=== PATIENT | male | born 1985 | race African-American/Black ===

== ENCOUNTER 2020-05-25 22:03 | Observation (INO) ==
[2020-05-25] MEDS ORDERED: ASPIRIN 325 MG TABLET PO STA (22:39)
[2020-05-25 22:56] LABS: Basophils # 0.1 10*3/uL (0.0-0.2); Basophils % 0.7 % (0.0-0.8); Eosinophils # 0.1 10*3/uL (0.0-0.87); Eosinophils % 1.1 % (0.00-10.9); Hematocrit 47.3 VOL% (42.0-52.0); Hemoglobin 15.3 GM/DL (14.0-18.0); Immature Granulocytes Absolute 0.12 #; Lymphocytes # 5.2 10*3/uL (1.4-4.0); Mean Corpuscular HGB Conc 32.3 GM/DL (32-36); Mean Corpuscular Volume 87.3 FL (87-102); Mean Platelet Volume 10.4 FL (9.6-12.0); Monocytes % 8.8 % (1.7-12.7); Neutrophils % 43.4 % (38.7-73.9); Platelet Count 255 T/CUMM (130-400); Red Blood Count 5.42 MC/CUMM (3.8-5.5); Red Cell Distribution Width 14.1 % (9.3-17.3); White Blood Count 11.6 T/CUMM (4-12)
[2020-05-25 23:07] LABS: INR 1.1; PT Patient Result 11.3 SECS (9.8-11.9); Partial Thromboplastin Time 29.7 SECS (23.9-33.8)
[2020-05-25 23:15] LABS: Alanine Aminotransferase 69 U/L (16-61); Albumin 3.8 G/DL (3.4-5.0); Alkaline Phosphatase 77 U/L (45-117); Aspartate Amino Transferase 24 U/L (0-37); Blood Urea Nitrogen 12 MG/DL (7-18); Estimated Glom Filtration Rate 126 ML/MIN; Glucose 141 MG/DL (74-106); Osmolality,Calculated 276.7 MOS/KG (273-304); Total Protein 8.4 G/DL (6.4-8.3)
[2020-05-25] MEDS ORDERED: hydrALAZINE 20 MG/1 ML VIAL IV PRN (23:36)
[2020-05-25] MEDS ORDERED: MORPHINE 4 MG/1 ML VIAL IV PRN (23:36)
[2020-05-25] MEDS ORDERED: diphenhydrAMINE CAP 25 MG CAPSULE PO PRN (23:36)
[2020-05-25] MEDS ORDERED: guaiFENesin/DM ER 600-30 MG TABLET PO PRN (23:36)
[2020-05-25] MEDS ORDERED: ZALEPLON 5 MG CAPSULE PO PRN (23:36)
[2020-05-25] MEDS ORDERED: DEXTROSE 50% 25 GM/50 ML VIAL IV PRN (23:36)
[2020-05-25] MEDS ORDERED: ACETAMINOPHEN 325 MG TABLET PO PRN (23:36)
[2020-05-25] MEDS ORDERED: NICOTINE 21 MG/24 HR PATCH TRANSDERM PRN (23:36)
[2020-05-25] MEDS ORDERED: PROMETHAZINE 25 MG/1 ML VIAL IM PRN (23:36)
[2020-05-25] MEDS ORDERED: GLUCAGON 1 MG VIAL IM PRN (23:36)
[2020-05-26] MEDS: ONDANSETRON 4 MG/2 ML VIAL IV PRN ×2 (00:15→09:19)
[2020-05-26] MEDS: SODIUM CHLORIDE 0.9% 1,000 ML IV SCH ×2 (01:08→14:18)
[2020-05-26 01:33] LABS: Apearance,Urine CLEAR (Clear); Bilirubin,Urine Negative (Negative); Blood, Urine Negative (Negative); Glucose,Urine (UA) 150 mg/dL (Negative); Ketones,Urine Negative (Negative); Mucus,Urine Occasional /LPF (Occasional); Nitrite,Urine Negative (Negative); Protein,Urine Negative; RBC,Urine 1 /HPF (0-4); Urine Color Yellow (Yellow); Urine Specific Gravity 1.024 (1.001-1.035); Urine Urobilinogen < 2.0 EU/DL (0.2-1.0); WBC,Urine 1 /HPF (0-6)
[2020-05-26 01:55] LABS: Barbiturates Screen,Urine Negative (Negative); Benzodiazepines Screen,Urine Positive (Negative); Cannabinoid Screen,Urine Negative (Negative); Opiate Screen,Urine Positive (Negative); Phencyclidine Screen,Urine Negative (Negative)
[2020-05-26] MEDS: prednisoLONE ACETATE 1% OPH SUSP 5 ML BOTTLE LEFT EYE SCH ×10 (07:00→17:47)
[2020-05-26 08:54] LABS: Basophils # 0.1 10*3/uL (0.0-0.2); Basophils % 0.7 % (0.0-0.8); Eosinophils # 0.1 10*3/uL (0.0-0.87); Eosinophils % 1.4 % (0.00-10.9); Hematocrit 44.5 VOL% (42.0-52.0); Hemoglobin 14.5 GM/DL (14.0-18.0); Immature Granulocytes % 1.1 %; Immature Granulocytes Absolute 0.11 #; Lymphocytes # 4.2 10*3/uL (1.4-4.0); Lymphocytes % 41.5 % (21.2-54.2); Mean Corpuscular HGB Conc 32.6 GM/DL (32-36); Mean Corpuscular Volume 87.9 FL (87-102); Monocytes % 9.5 % (1.7-12.7); Neutrophils % 45.8 % (38.7-73.9); Platelet Count 231 T/CUMM (130-400); Red Blood Count 5.06 MC/CUMM (3.8-5.5); Red Cell Distribution Width 14.1 % (9.3-17.3); White Blood Count 10.2 T/CUMM (4-12)
[2020-05-26] MEDS ORDERED: CYCLOPENTOLATE 1% OPH SOLN 2 ML BOTTLE LEFT EYE SCH ×2 (09:00→21:00)
[2020-05-26] MEDS ORDERED: ENOXAPARIN 40 MG/0.4 ML SYRINGE SUBCUT SCH (09:00)
[2020-05-26] MEDS ORDERED: DOCUSATE SODIUM 100 MG CAPSULE PO SCH (09:00)
[2020-05-26] MEDS ORDERED: ASPIRIN EC 325 MG TABLET PO SCH (09:00)
[2020-05-26] MEDS ORDERED: PANTOPRAZOLE 40 MG TABLET PO SCH (09:00)
[2020-05-26] MEDS: MOXIFLOXACIN 0.5% OPH SOLN 3 ML BOTTLE LEFT EYE SCH ×2 (09:22→14:00)
[2020-05-26 09:23] LABS: Calcium 8.7 MG/DL (8.5-10.1); Osmolality,Calculated 276.5 MOS/KG (273-304)
[2020-05-26 09:26] LABS: Risk Ratio 3.86; VLDL CHOLESTEROL 39.8 MG/DL
[2020-05-26] MEDS ORDERED: ALPRAZolam 0.5 MG TABLET PO SCH (10:30)
[2020-05-26 15:58] VITALS: BP 124/72
[2020-05-26] MEDS ORDERED: prednisoLONE ACETATE 1% OPH SUSP 5 ML BOTTLE LEFT EYE SCH (16:00)
[2020-05-26] MEDS ORDERED: MOXIFLOXACIN 0.5% OPH SOLN 3 ML BOTTLE LEFT EYE SCH (17:00)
[2020-05-26] MEDS ORDERED: TOBRAMYCIN/DEXAMETHASONE OPH OINT 3.5 GM TUBE LEFT EYE SCH (21:00)
== END 2020-05-26 18:28 | disposition home or self-care (01) ==
LOC: N.EDINP 22:03 → N.ED 22:03 → SUATTDRO 23:36 → N.EDINP 05-26 01:55 → N.TELES 05-26 02:22
PROVIDERS: ADMIT Internal Medicine; ATTEND Internal Medicine